=== PATIENT | female | born 1935 | race Caucasian/White ===

== ENCOUNTER 2016-11-29 19:05 | Emergency (ER) | payer OTHER ==
[~2016-11-29] VITALS: Ht 165.1 cm; Wt 107.2 kg
[~2016-11-29 19:05] MED LIST: ADVAIR HFA120 INHALA IH; AMOX TR-K CLV1 EAC4 PO; ARICEPT10 MG PO; ASPIR 8181 M1 PO; ATACAND16 MG PO; Aspirin Chewable PO; BENADRYL25 MG PO; CARDIZEM CD180 MG PO; CELEXA20 MG PO; CLARITIN10 M3 PO; CYANOCOBALAM1000 MCG PO; Cardizem CD,Cartia X PO; DULOXETINE HCL30 MG PO; DUONEB 2.5-0.5 M3 ML AEROSOL; Ecotrin PO; FISH OIL 1,0001 EAC7 PO; FLEET ENEMA-AD118 ML PR; FUROSEMIDE40 MG PO; GLIPIZIDE5 MG PO; GLUCOPHAGE500 MG PO; Glucophage PO; INCRUSE ELLI62.5 MCG IH; K-DUR20 MEQ PO; KLOR-CON M2020 MEQ PO; LASIX40 MG PO; LAXATIVE SUPPOS10 MG PR; LO-DOSE ASPIRIN81 M1 PO; LOSARTAN POTASS50 MG PO; MELATONIN5 M1 PO; METFORMIN HCL500 MG PO; METOPROLOL SUCC25 MG PO; METOPROLOL SUCC50 MG PO; MILK OF MAGN PO; PHOSPHA250 MG PO; PLAVIX75 MG PO; PREDNISONE10 MG PO; PREDNISONE20 MG PO; PROAIR HFA8.5 GM IH; Proventil,Ventolin H IH; SIMVASTATIN10 MG PO; TOPROL XL25 MG PO; TOPROL XL50 MG PO; TYLENOL EXTRA500 MG PO; TYLENOL WITH C1 EACH PO; Toprol XL PO; ULTRAM50 MG PO; VITAMIN B122500 MCG PO; VITAMIN D31000 UNIT PO; Vicodin,Lortab 5/500; Vicodin,Lortab 5/500 PO; ZOCOR10 MG PO; ZYRTEC10 M3 PO; Zocor PO; Zoloft PO; ZyrTEC PO; Zyrtec PO
[2016-11-29 21:07] VITALS: BP 160/72
== END 2016-11-29 21:19 ==
LOC: EME → EDBD 19:05 → EME 19:05
DX: S00.03XA Contusion of scalp, initial encounter (principal); S09.90XA Unspecified injury of head, initial encounter; W05.0XXA Fall from non-moving wheelchair, initial encounter; Y92.129 Unspecified place in nursing home as the place of occurrence of the external cause; J44.9 Chronic obstructive pulmonary disease, unspecified; E11.9 Type 2 diabetes mellitus without complications; I25.2 Old myocardial infarction; Z90.49 Acquired absence of other specified parts of digestive tract; Z87.891 Personal history of nicotine dependence
CPT/HCPCS: 70450; 93005; 99281; 99284

== ENCOUNTER 2017-06-22 15:59 | Inpatient (IN) | payer OTHER ==
[~2017-06-22] VITALS: Ht 144.8 cm; Wt 101.0 kg
[~2017-06-22 15:59] MED LIST changes: +METFORMIN HCL1000 MG PO
[2017-06-22 17:04] LABS: BASOPHIL (%) 0.4 % (0-1); BASOPHIL COUNT 0.1 K/uL (0-0.1); EOSINOPHIL (%) 0.9 % (0-5); EOSINOPHIL COUNT 0.2 K/uL (0-0.3); HEMOGLOBIN 12.8 G/DL (11.9-15.5); IMMATURE GRANULOCYTE (%) 1.7 % (0.0-0.7); LYMPHOCYTE (%) 13.1 % (15-42); LYMPHOCYTE COUNT 2.2 K/uL (1.0-2.8); MCH 27.2 PG (29.0-34.0); MCHC 32.8 G/DL (30.0-36.0); MONOCYTE (%) 6.2 % (3-12); NEUTROPHIL (%) 77.7 % (45-76); PLATELET COUNT 239 K/uL (156-360); RBC DIS.WIDTH-CV 15.2 % (11.8-14.6); RBC DIS.WIDTH-SD 46.1 % (39-53); WHITE BLOOD COUNT 16.7 K/uL (4.1-10.2)
[2017-06-22 17:14] LABS: ALBUMIN 3.9 g/dL (3.2-4.8); CHLORIDE 88 mEq/L (99-109); SODIUM 134 mEq/L (136-147)
[2017-06-22 17:15] LABS: INTER. NORMALIZED RATIO 1.1
[2017-06-22 17:16] LABS: CARBON DIOXIDE (BICARBONATE) 37.5 MEQ/L (20-31); GLUCOSE 302 mg/dL (70-99); TOTAL PROTEIN 7.4 g/dL (6.4-8.3)
[2017-06-22 17:18] LABS: TOTAL BILIRUBIN 0.5 mg/dL (0.0-1.0)
[2017-06-22 17:20] LABS: ALKALINE PHOSPHATASE 99 IU/L (3-129); CREATININE 1.4 mg/dL (0.6-1.3); GFR ESTIMATE (CALCULATED) 38 mL/min/
[2017-06-22 17:21] LABS: UREA NITROGEN (BUN) 40 mg/dL (9-23)
[2017-06-22 17:22] LABS: AST (GOT) 16 IU/L (2-34); DIRECT BILIRUBIN 0.2 mg/dL (0.0-0.3)
[2017-06-22 17:23] LABS: ALT (GPT) 17 IU/L (3-49); LIPASE 13 U/L (1.0-51.0)
[2017-06-22 17:24] LABS: POTASSIUM 3.3 mEq/L (3.7-5.4)
[2017-06-22 17:26] LABS: TROP-I INTERPRETATION NEGATIVE; TROPONIN-I 0.05 ng/mL (0.0-0.30)
[2017-06-22 18:10] LABS: APPEARANCE CLEAR ((CLEAR)); BILIRUBIN NEGATIVE; BLOOD NEGATIVE; COLOR STRAW ((YELLOW)); GLUCOSE (STRIP) 50; KETONES NEGATIVE; LEUKOCYTES NEGATIVE; NITRITE NEGATIVE; PROTEIN (STRIP) 30; UCUL ADDED? NO; UROBILINOGEN 0.2 MG/DL (0.2-1.0)
[2017-06-23] VITALS (8 sets, daily range): BP systolic 136–180; BP diastolic 64–90
[2017-06-23 06:44] LABS: HEMATOCRIT 35.9 % (36.0-46.0); HEMOGLOBIN 11.7 G/DL (11.9-15.5); MCH 27.3 PG (29.0-34.0); MCHC 32.6 G/DL (30.0-36.0); MCV 83.9 FL (83-99); PLATELET COUNT 199 K/uL (156-360); RBC DIS.WIDTH-CV 15.3 % (11.8-14.6); RBC DIS.WIDTH-SD 46.2 % (39-53); RED BLOOD COUNT 4.28 M/uL (3.80-5.20); WHITE BLOOD COUNT 15.4 K/uL (4.1-10.2)
[2017-06-23 07:13] LABS: CHLORIDE 97 MEQ/L (99-109); GFR ESTIMATE (CALCULATED) 56 mL/min/; GLUCOSE 245 mg/dL (70-99); POTASSIUM 3.3 MEQ/L (3.7-5.4); SODIUM 137 MEQ/L (136-147); UREA NITROGEN (BUN) 27 mg/dL (9-23)
[2017-06-24 04:05] VITALS: BP 145/77
[2017-06-24 06:42] LABS: BASOPHIL (%) 0.3 % (0-1); EOSINOPHIL COUNT 0.3 K/uL (0-0.3); HEMATOCRIT 34.8 % (36.0-46.0); HEMOGLOBIN 11.1 G/DL (11.9-15.5); IMMATURE GRANULOCYTE (%) 1.3 % (0.0-0.7); LYMPHOCYTE (%) 12.1 % (15-42); LYMPHOCYTE COUNT 1.6 K/uL (1.0-2.8); MCH 26.9 PG (29.0-34.0); MCHC 31.9 G/DL (30.0-36.0); MCV 84.3 FL (83-99); MONOCYTE (%) 8.9 % (3-12); MONOCYTE COUNT 1.2 K/uL (0-0.8); NEUTROPHIL (%) 75.4 % (45-76); NEUTROPHIL COUNT 9.7 K/uL (1.8-6.4); PLATELET COUNT 175 K/uL (156-360); RBC DIS.WIDTH-CV 15.2 % (11.8-14.6); RBC DIS.WIDTH-SD 46.2 % (39-53); RED BLOOD COUNT 4.13 M/uL (3.80-5.20); WHITE BLOOD COUNT 12.9 K/uL (4.1-10.2)
[2017-06-24 07:12] LABS: CHLORIDE 99 MEQ/L (99-109); CREATININE 0.8 MG/DL (0.6-1.3); GFR ESTIMATE (CALCULATED) > 59 mL/min/; GLUCOSE 174 mg/dL (70-99); POTASSIUM 3.3 MEQ/L (3.7-5.4); SODIUM 136 MEQ/L (136-147); UREA NITROGEN (BUN) 18 mg/dL (9-23)
[2017-06-24 07:20] VITALS: BP 164/84
[2017-06-24 15:20] VITALS: BP 168/71
[2017-06-24 23:03] VITALS: BP 174/77
[2017-06-24 23:08] VITALS: BP 174/77
[2017-06-25 03:37] VITALS: BP 160/72
[2017-06-25 05:48] LABS: BASOPHIL (%) 0.5 % (0-1); BASOPHIL COUNT 0.1 K/uL (0-0.1); EOSINOPHIL (%) 3.5 % (0-5); EOSINOPHIL COUNT 0.4 K/uL (0-0.3); HEMATOCRIT 32.7 % (36.0-46.0); HEMOGLOBIN 10.5 G/DL (11.9-15.5); IMMATURE GRANULOCYTE (%) 1.2 % (0.0-0.7); LYMPHOCYTE (%) 16.4 % (15-42); LYMPHOCYTE COUNT 1.8 K/uL (1.0-2.8); MCH 27.5 PG (29.0-34.0); MCHC 32.1 G/DL (30.0-36.0); MCV 85.6 FL (83-99); MONOCYTE COUNT 1.2 K/uL (0-0.8); NEUTROPHIL (%) 67.4 % (45-76); NEUTROPHIL COUNT 7.4 K/uL (1.8-6.4); PLATELET COUNT 149 K/uL (156-360); RBC DIS.WIDTH-CV 15.5 % (11.8-14.6); RED BLOOD COUNT 3.82 M/uL (3.80-5.20)
[2017-06-25 08:00] VITALS: BP 166/72
[2017-06-25 08:19] LABS: CHLORIDE 101 MEQ/L (99-109); CREATININE 0.8 MG/DL (0.6-1.3); GFR ESTIMATE (CALCULATED) > 59 mL/min/; GLUCOSE 165 mg/dL (70-99); SODIUM 137 MEQ/L (136-147); THYROTROPIN (TSH) 2.2 MIU/L (0.4-5.5); UREA NITROGEN (BUN) 17 mg/dL (9-23)
[2017-06-25 08:23] LABS: POTASSIUM 4.1 MEQ/L (3.7-5.4)
[2017-06-25 11:20] VITALS: BP 168/72
[2017-06-25] MEDS ORDERED: NOVOLOG 10100 UNITS/ SC (11:51)
[2017-06-25] MEDS ORDERED: GLIPIZIDE5 MG PO (11:51)
== END 2017-06-25 14:39 | DRG 682 ==
LOC: EME 15:59 → EDOF 22:13 → 2EAST 22:13 → ENRESERV 22:14 → 2EAST 06-23 00:27
PROVIDERS: Emergency Medicine; Hospitalist; Internal Medicine
DX: N17.9 Acute kidney failure, unspecified (principal); G92 Toxic encephalopathy; J96.11 Chronic respiratory failure with hypoxia; D72.829 Elevated white blood cell count, unspecified; T38.0X5A Adverse effect of glucocorticoids and synthetic analogues, initial encounter; E11.65 Type 2 diabetes mellitus with hyperglycemia; J44.9 Chronic obstructive pulmonary disease, unspecified; I48.2 Chronic atrial fibrillation; F05 Delirium due to known physiological condition; F03.90 Unspecified dementia, unspecified severity, without behavioral disturbance, psychotic disturbance, mood disturbance, and anxiety; G47.33 Obstructive sleep apnea (adult) (pediatric); I25.10 Atherosclerotic heart disease of native coronary artery without angina pectoris; I10 Essential (primary) hypertension; E78.5 Hyperlipidemia, unspecified; M81.0 Age-related osteoporosis without current pathological fracture; E55.9 Vitamin D deficiency, unspecified; G89.29 Other chronic pain; M54.9 Dorsalgia, unspecified; R26.2 Difficulty in walking, not elsewhere classified; E66.9 Obesity, unspecified; Z68.42 Body mass index [BMI] 45.0-49.9, adult; I25.2 Old myocardial infarction; E87.2 Acidosis; Z79.82 Long term (current) use of aspirin; Z79.84 Long term (current) use of oral hypoglycemic drugs; Z95.5 Presence of coronary angioplasty implant and graft; Z90.711 Acquired absence of uterus with remaining cervical stump; Z87.891 Personal history of nicotine dependence; Z87.442 Personal history of urinary calculi
CPT/HCPCS: 70450; 71046; 71250; 80048; 80076; 81003; 82607; 82803; 82948; 83605; 83690; 84443; 84484; 85025; 85027; 85610; 87040; 87502; 92523 GN; 94640; 94640 76; 94760; 94799; 99202; 99281; 99285; G0515 GN; J0692; J0696; J1644; J1815; J1956; J3370; J7030